=== PATIENT | male | born 1985 | race Caucasian/White ===

== ENCOUNTER → 2025-03-05 07:41 | Outpatient (REF) | payer BC, SELFPAY | LOC: RAD 07:41 | PROVIDERS: ATTENDING PHYSICIAN Chiropractor; FAMILY PHYSICIAN Internal Medicine | DX: M54.12 Radiculopathy, cervical region (principal); M79.12 Myalgia of auxiliary muscles, head and neck; S13.8XXA Sprain of joints and ligaments of other parts of neck, initial encounter | CPT/HCPCS: 72050 ==